=== PATIENT | male | born 1940 | race Caucasian/White ===

== ENCOUNTER 2023-10-16 10:49 | Inpatient (IN) | payer MEDICARE ==
[~2023-10-16] VITALS: Ht 180.3 cm; Wt 97.9 kg
[2023-10-16] VITALS (7 sets, daily range): BP systolic 113–127; BP diastolic 69–75; PULSE 63–70; TEMP 97.5–97.8
--- NOTE | 2023-10-16 12:00 | NUR ---
Pt arrived via EMS. Pt and family oriented to room. Assessment complete. MED Rec complete. Providers notified. CAll light in reach and bed alarm on.
[2023-10-16] MEDS ORDERED: Docusate Sodium 100 MG CAP PO PRN (12:15)
[2023-10-16] MEDS ORDERED: Acetaminophen 325 MG TAB PO PRN (12:15)
[2023-10-16] MEDS ORDERED: Polyethylene Glycol 3350 17 GM PDS PO PRN (12:15)
[2023-10-16] MEDS ORDERED: Ondansetron 4 MG/2 ML VIAL IV PRN (12:15)
[2023-10-16 12:28] LABS: COLLECTION METHOD CATHETER
[2023-10-16] MEDS ORDERED: Morphine 4 MG/ML VIAL IV PRN (12:30)
[2023-10-16] MEDS ORDERED: Naloxone 0.4 MG/ML VIAL IV PRN (12:30)
[2023-10-16] MEDS ORDERED: oxyCODONE 5 MG TAB PO PRN (12:30)
[2023-10-16] MEDS ORDERED: LIPITOR 40MG TA40 MG PO (12:31)
[2023-10-16] MEDS ORDERED: NORVASC 10MG10 MG PO (12:32)
[2023-10-16] MEDS ORDERED: ZEBETA10 MG PO (12:33)
[2023-10-16] MEDS ORDERED: ELIQUIS 5MG PO (12:34)
[2023-10-16] MEDS ORDERED: PRINIVIL10 MG PO (12:34)
[2023-10-16 12:35] LABS: PH 6.5 (5.0-8.5); URINE APPEARANCE CLEAR (CLEAR/HAZY); URINE BLOOD NEGATIVE (NEGATIVE); URINE COLOR YELLOW (YELLOW); URINE GLUCOSE NEGATIVE (NEGATIVE); URINE KETONE NEGATIVE (NEGATIVE); URINE NITRATE NEGATIVE (NEGATIVE); URINE PROTEIN(semi-quant) TRACE (NEGATIVE)
[2023-10-16] MEDS ORDERED: FLOMAX 0.40.4 MG/CAP PO (12:35)
[2023-10-16] MEDS ORDERED: NOVOLIN R100 U/ML SQ (12:35)
[2023-10-16] MEDS ORDERED: PROSCAR 5MG5 MG PO (12:36)
[2023-10-16] MEDS ORDERED: LASIX 40MG TABL40 MG PO (12:36)
[2023-10-16] MEDS ORDERED: PARCOPA 25/101 UDTAB PO (12:38)
[2023-10-16] MEDS ORDERED: REQUIP0.25 MG PO (12:38)
[2023-10-16] MEDS ORDERED: KLOR-CON M2020 MEQ PO (12:39)
[2023-10-16] MEDS ORDERED: VITAMIN B11000 MCG/M IM (12:39)
[2023-10-16] MEDS ORDERED: SYNTHROID0.05 MG/TA PO (12:40)
[2023-10-16] MEDS ORDERED: ZYLOPRIM 100MG100 MG PO (12:40)
[2023-10-16] MEDS ORDERED: PROFERRIN ES12 MG PO (12:41)
[2023-10-16] MEDS ORDERED: MASON NATURAL2000 IU PO (12:42)
[2023-10-16] MEDS ORDERED: NS 1,000 ML IV SCH (12:45)
[2023-10-16 14:18] LABS: INR 1.6 (0.8-3.0); PROTHROMBIN TIME 17.5 SECONDS (9.7-12.8)
[2023-10-16] MEDS ORDERED: Insulin Lispro (HumaLOG) SQ SCH (17:00)
--- NOTE | 2023-10-16 20:00 | NUR ---
Assessment complete. A&Ox3. Denies nausea/shortness of breath. Rating pain 4/10 on pain scale-described as throbbing-tylenol given earlier in shift. Offered oxycodone but patient states he can not take narcotics and prefers to stick with tylenol. VS stable. Repositioned in bed with pillow support. Fresh ice pack applied. PERCY/SCD to right lower ext. [place] cath with clear yellow urine. 20g IV to right forearm with NS@75ml/hr-infusing without difficulty. Noted to have a laceration to back of head-edges well approximated-no bleeding noted. ALso noted to have small abrasions to left shoulder and left knee from fall. Left side of chest bruised. Mepilex to coccyx for redness. PLan of care discussed for this shift to include meds/pain control/NPO@0000. Verbalizes understanding. Call light in reach. Will monitor.
[2023-10-16] MEDS ORDERED: Atorvastatin 40 MG TAB PO SCH (21:00)
--- NOTE | 2023-10-16 22:50 | NUR ---
Rating pain 6/10 to left hip-described as constant throbbing. Tylenol given per dr order. Will monitor.
[2023-10-17] VITALS (17 sets, daily range): BP systolic 106–163; BP diastolic 61–79; PULSE 69–73; TEMP 97.3–98.2
[2023-10-17 06:42] LABS: BASO % 0.5 % (0.0-2.0); EOS # 0.2 K/mm3 (0.0-0.7); EOS % 2.6 % (0.0-4.0); GRAN # 6.9 K/mm3 (1.4-6.5); GRAN % 80.9 % (42.2-75.2); HEMOGLOBIN 12.4 g/dl (13.5-18.0); LYMPH # 0.6 K/mm3 (1.2-3.4); LYMPH % 7.5 % (20.0-51.0); MEAN CELL VOLUME 97 fl (80.0-100.0); MEAN CORPUSCULAR HEMOGLOBIN 33 pg (27-31); MEAN CORPUSCULAR HGB CONC 34 g/dl (33.0-37.0); MEAN PLATELET VOLUME 11.1 fl (7.4-10.4); MONO # 0.7 K/mm3 (0.1-0.6); MONO % 7.8 % (1.7-9.3); PLATELET COUNT 124 K/mm3 (130-400); RED BLOOD COUNT 3.78 M/mm3 (4.20-5.60)
[2023-10-17 06:51] LABS: HEMATOCRIT 36.7 % (42.0-52.0)
[2023-10-17 07:14] LABS: ALBUMIN 3.3 g/dL (3.4-4.8); BILIRUBIN,TOTAL 2.1 mg/dL (0.2-1.2); CALCIUM 8.6 mg/dL (8.4-10.2); CREATININE, serum 1.09 mg/dL (0.72-1.25); TOTAL PROTEIN 5.9 g/dl (6.2-8.1)
[2023-10-17] MEDS ORDERED: Bisoprolol 5 MG TAB PO SCH (09:00)
[2023-10-17] MEDS ORDERED: Finasteride 5 MG TAB PO SCH (09:00)
[2023-10-17] MEDS ORDERED: Lisinopril 10 MG TAB PO SCH (09:00)
[2023-10-17] MEDS ORDERED: Furosemide 40 MG TAB PO SCH (09:00)
[2023-10-17] MEDS ORDERED: Allopurinol 100 MG TAB PO SCH (09:00)
[2023-10-17] MEDS ORDERED: amLODIPine 10 MG TAB PO SCH (09:00)
[2023-10-17] MEDS ORDERED: SINEMET 25/101 UDTAB PO (10:32)
--- NOTE | 2023-10-17 10:43 | NUR ---
Patient resting in bed. Family at bedside. Echo completed this am. Kendra with radiology rounded, patient remains NPO for lexiscan today. Am medication given with sips of water. Discussed medication list with and patient and corrections made to list and reviewed with pharmascist. Patient repostioned in bed. Pain increased with activity, but patient not interested in narcotics. Cms intact. Scds BLE. Sly to RLE. Juan to DD. Will monitor
--- NOTE | 2023-10-17 11:10 | NUR ---
Patient to have lexiscan within 20 minutes. In anticipation of activity and increased pain, patient agreeable to take morphine. Patient concerned pain medication to cause nausea. Prn zofran also given. Patient reports history of nausea with pain medications. James evans
[2023-10-17] MEDS ORDERED: rOPINIRole 0.5 MG TAB PO SCH (12:00)
[2023-10-17] MEDS ORDERED: Regadenoson 0.08 MG/ML 5 ML SYRINGE IV SCH (12:16)
--- NOTE | 2023-10-17 13:09 | NUR ---
Patient has returned from [place] scan. Patient ready to eat. [facility] called, awaiting return call for orders. Patient reports pain more managed.
[2023-10-17] MEDS ORDERED: LASIX 40MG TABL40 MG PO (14:53)
--- NOTE | 2023-10-17 14:58 | NUR ---
die out worker met with pt and his , Anne [phone] to discuss discharge planning. He reports to live in [place] with his . He states his PCP is Dr. Rollins and obtains medications from [facility] with no difficulties. He states his insurance as Medicare A and B and [facility]. He is independent with ADLS and uses a cane, 4WW, and oxygen at night through [facility]. He does have a DPOA-HC at home listing his . Pt has not yet had surgery and has no therapy orders yet. SW provided Medicare.gov list of SNF's in [place], which they state is near [place]. states they would be interested in [facility] [facility] as this is most convienent for them. SW states she will note this and inform main SW for after his surgery is done. Discharge Plan: [facility]
--- NOTE | 2023-10-17 19:20 | NUR ---
PATIENT RESTING IN BED WITH TV ON WITH NO FAMILY PRESENT WITH NO ACUTE DISTRESS NOTED. PATIENT ON 4 LITERS OF OXYGEN VIA NC. NS INFUSING INTO RIGHT FOREARM WITH NO COMPLICATIONS NOTED. HARDIN CATH INTACT, PATENT, AND DRAINING CLEAR YELLOW URINE. BEDSIDE SHIFT REPORT COMPLETED WITH LLOYD AT THIS TIME. PATIENT DENIES ANY NEEDS. BED IN LOW POSITION WITH WHEELS LOCKED WITH RAILS UP X3 AND CALL LIGHT WITHIN REACH. BED ALARM ON.
--- NOTE | 2023-10-17 19:26 | NUR ---
Patient resting in bed. Repositioned in bed. Did well with his early dinner, just disappointed in food. Martinez to DD with adequate urine output. IVf as ordered. Morphine for pain management and tylenol. BLe elevated on pillows. Scds. Report to irmaurse
--- NOTE | 2023-10-17 21:50 | NUR ---
PATIENT RESTING IN BED WITH TV ON WITH NO FAMILY PRESENT WITH NO ACUTE DISTRESS NOTED. PATIENT ON 4 LITERS OF OXYGEN VIA NC. NS INFUSING INTO RIGHT FOREARM WITH NO COMPLICATIONS NOTED. HARDIN CATH INTACT, PATENT, AND DRAINING CLEAR YELLOW URINE. ASSESSMENT AND MEDICATION ADMINISTRATION COMPLETED AT THIS TIME. PATIENT PLACED MEDICATIONS IN LEFT HAND AND DROPPED TWO IN BED. PRIMARY NURSE PUT MEDICATION IN MEDICATION CUP. PRIMARY NURSE HELPED PATIENT PLACE MEDICATION IN MOUTH WITH MEDICINE CUP. PATIENT SPIT MEDICATIONS OUT INTO HIS HAND AND STATED IM NOT GOING TO TAKE THEM. PRIMARY NURSE TRIED TO ORIENT PATIENT TO WHY HE SHOULD TAKE HIS MEDICATIONS AND EXPLAINED WHAT EACH WAS. PATIENT STILL REFUSED TO TAKE THEM. PATIENT DENIES ANY OTHER NEEDS. BED IN LOW POSITION WITH WHEELS LOCKED WITH RAILS UP X3 AND CALL LIGHT WITHIN REACH. BED ALARM ON.
--- NOTE | 2023-10-17 23:36 | NUR ---
PATIENT RESTING IN BED WITH TV ON WITH NO FAMILY PRESENT WITH NO ACUTE DISTRESS NOTED. PATIENT ON 4 LITERS OF OXYGEN VIA NC. NS INFUSING INTO RIGHT FOREARM WITH NO COMPLICATIONS NOTED. PATIENT HAD DISCONNECTED HIS HARDIN DRAIN BAG FROM HIS INSERTED CATHETER. DRAIN BAG REATTACHED AND MARKO CARE PROVIDED. BED CHANGED. PATIENT PULLED UP IN BED AND HELPED TO REPOSITION FOR COMFORT. ALL NEEDS MET. BED IN LOW POSITION WITH WHEELS LOCKED WITH RAILS UP X3 AND CALL LIGHT WITHIN REACH. BED ALARM ON.
[2023-10-18] VITALS (18 sets, daily range): BP systolic 107–174; BP diastolic 54–96; PULSE 59–99; TEMP 97.3–99.4
--- NOTE | 2023-10-18 00:05 | NUR ---
PATIENT TRANSPORTED TO CT VIA BED AT THIS TIME.
--- NOTE | 2023-10-18 00:10 | NUR ---
LOUD CRASH HEARD IN ROOM 345. BED ALARM GOING OFF. PRIMARY NURSE IN TO CHECK ON PATIENT. PATIENT FOUND IN FLOOR ON KNEES WITH HANDS AND HEAD RESTING IN RECLINER. PATIENT ASSISTED TO SIT UP IN FLOOR. PATIENT STATES " YOU ARE GOING TO BURN DOWN THE HOUSE AND KILL ME." PRIMARY NURSE ASSURED PATIENT THAT WAS NOT THE CASE AND THAT PATIENT WAS IN THE HOSPITAL IN [place]. PATIENT ASSISTED BACK TO BED WITH HELP OF DANIA, PRIMARY NURSE, AND STELLA. PATIENT TOLERATED WELL. VITAL SIGNS TAKEN WHILE SITTING ON FLOOR. BLOOD PRESSURE 174/96, 93 % ON ROOM AIR, AND RESPIRATIONS 20. VITAL SIGNS CHECKED AGAIN ONCE BACK IN BED. BLOOD PRESSURE 144/59, HEART RATE 99, RESPIRATIONS 20, AND 97% ON 4LITERS VIA NC.
--- NOTE | 2023-10-18 00:32 | NUR ---
[facility]IENT FALL AT THIS TIME. ORDER RECIEVED FOR CT OF HEAD WITHOUT CONTRAST.
--- NOTE | 2023-10-18 00:56 | NUR ---
PATIENT TRANSPORTED TO CT VIA BED AT THIS TIME.
--- NOTE | 2023-10-18 01:08 | NUR ---
PATIENT BACK FROM CT VIA BED AT THIS TIME.
--- NOTE | 2023-10-18 01:20 | NUR ---
0120- NEW INT OBTAINED INTO RIGHT HAND VIA 1 STICK. DRESSING APPLIED AND INT FLUSHED. NS STARTED BACK AT THIS TIME. 0125- INT TO RIGHT FOREARM REMOVED WITH CATHETER INTACT. PRESSURE DRESSING APPLIED. PATIENT TOELRATED WELL. PATIENT DENIES ANY NEEDS AT THIS TIME. BED IN LOW POSITION WITH WHEELS LOCKED WITH RAILS UP X3 AND CALL LIGHT WITHIN REACH. BED ALAMR ON.
[2023-10-18 06:50] LABS: BASO % 0.2 % (0.0-2.0); EOS % 0.1 % (0.0-4.0); GRAN # 9.6 K/mm3 (1.4-6.5); GRAN % 87.8 % (42.2-75.2); HEMOGLOBIN 11.3 g/dl (13.5-18.0); LYMPH # 0.5 K/mm3 (1.2-3.4); LYMPH % 4.4 % (20.0-51.0); MEAN CELL VOLUME 99 fl (80.0-100.0); MEAN CORPUSCULAR HEMOGLOBIN 32 pg (27-31); MEAN CORPUSCULAR HGB CONC 32 g/dl (33.0-37.0); MEAN PLATELET VOLUME 11.4 fl (7.4-10.4); MONO # 0.8 K/mm3 (0.1-0.6); MONO % 6.9 % (1.7-9.3); PLATELET COUNT 103 K/mm3 (130-400); RED BLOOD COUNT 3.53 M/mm3 (4.20-5.60); REDCELL DISTRIBUTION WIDTH-CV 13.2 % (11.5-14.5)
[2023-10-18 07:12] LABS: ALBUMIN 3.1 g/dL (3.4-4.8); BILIRUBIN,TOTAL 1.8 mg/dL (0.2-1.2); CALCIUM 8.6 mg/dL (8.4-10.2); CREATININE, serum 1.28 mg/dL (0.72-1.25); POTASSIUM 4.3 mEq/L (3.5-4.5); TOTAL PROTEIN 5.9 g/dl (6.2-8.1)
[2023-10-18] MEDS ORDERED: Glucagon 1 MG VIAL IM PRN (07:15)
[2023-10-18] MEDS ORDERED: Dextrose 50% Water 25 GM/50 ML SYRINGE IV PRN (07:15)
[2023-10-18] MEDS ORDERED: Dextrose (Glucose) 15 GM (4 x 3.75 GM) Chewable TABLET PACK PO PRN (07:15)
[2023-10-18 07:27] LABS: HEMATOCRIT 34.9 % (42.0-52.0)
--- NOTE | 2023-10-18 08:30 | NUR ---
Pt. sitting up in bed. Pt. is alert and confused, thinking he is in [place]. Pt. reoriented. IV to rt. hand patent, fluids infusing per orders. Martinez cath to dd, clear yellow urine noted. Pt. has lac to back, left side of head from fall, well approximated, abraisions to lt. shoulder and lt. knee noted. Mepilex to bottom for reddness, skin intact. Pt. denies pain or other needs, call light within reach.
--- NOTE | 2023-10-18 10:44 | NUR ---
welfare worker reviewed notes and noted patient was wanting [facility] for rehab. SW faxed referral to [facility] and will follow up.
[2023-10-18] MEDS ORDERED: dexAMETHasone 10 MG/ML VIAL ONE (11:03)
[2023-10-18] MEDS ORDERED: Lidocaine PF 2% (20 MG/ML) 5 ML VIAL ONE (11:03)
--- NOTE | 2023-10-18 11:25 | NUR ---
Pt. to surgery at this time.
[2023-10-18] MEDS ORDERED: Ondansetron 4 MG/2 ML VIAL IV PRN ×2 (11:30→15:00)
[2023-10-18] MEDS ORDERED: hydrALAZINE 20 MG/ML 1 ML VIAL IV PRN (11:30)
[2023-10-18] MEDS ORDERED: HYDROmorphone 1 MG/1 ML SYRINGE [PACU/SDC ONLY] IV PRN (11:30)
[2023-10-18] MEDS ORDERED: droPERidol 2.5 MG/ML 2 ML VIAL IV PRN (11:30)
[2023-10-18] MEDS ORDERED: Meperidine 50 MG/ML 1 ML VIAL IV PRN (11:30)
[2023-10-18] MEDS ORDERED: fentaNYL 50 MCG/ML 1 ML SYRINGE/VIAL [PACU/SDC ONLY] IV PRN ×2 (11:30)
[2023-10-18] MEDS ORDERED: NS 10 ML IV ONE (12:20)
[2023-10-18] MEDS ORDERED: fentaNYL 50 MCG/ML 2 ML VIAL ONE (12:28)
--- NOTE | 2023-10-18 13:55 | NUR ---
Pt. to the floor from PACU. Pt. is A&Ox3, assessment WNL. Dressings to lt. hip and thigh CDI. Pt. denies pain or other needs.
[2023-10-18] MEDS ORDERED: Mag/Al Hydrox/Simeth Susp 30 ML CUP PO PRN (15:00)
[2023-10-18] MEDS ORDERED: HYDROcodone/Acetaminophen 7.5-325 MG TAB PO PRN (15:00)
[2023-10-18] MEDS ORDERED: 1/2 NS 1,000 ML IV SCH (15:00)
[2023-10-18] MEDS ORDERED: Naloxone 0.4 MG/ML VIAL IV PRN (15:00)
[2023-10-18] MEDS ORDERED: Docusate Sodium 100 MG CAP PO PRN (15:00)
[2023-10-18] MEDS ORDERED: Morphine 4 MG/ML VIAL IV PRN (15:00)
[2023-10-18] MEDS ORDERED: Magnes Hydrox (MOM) 80 MG/ML 30 ML CUP PO PRN (15:00)
--- NOTE | 2023-10-18 17:10 | NUR ---
JUVENAL requested OT to be ordered as well for this patient. JUVENAL will follow up tomorrow and send clinicals to [facility].
[2023-10-18] MEDS ORDERED: Apixaban 5 MG TABLET PO SCH (21:00)
--- NOTE | 2023-10-18 22:07 | NUR ---
Patient assessed at this time, see shift assessment, slightly drowsy, confused, refused to take his meds including his insulin, dressing to left hip clean, dry and intact, IV infusing well to right hand, SCD's and PERCY's on, with laureano to dependent drainage, call light and personal items within reach, fall precautions in place, will continue to monitor.
[2023-10-19] VITALS (12 sets, daily range): BP systolic 97–147; BP diastolic 55–86; PULSE 69–74; TEMP 96.2–98.2
[2023-10-19] MEDS ORDERED: ceFAZolin 2 G in Water For Injection,Sterile 20 ML IV SCH (00:30)
--- NOTE | 2023-10-19 04:21 | NUR ---
Repositioned patient to the left side, denies pain or discomfort, will continue to monitor.
[2023-10-19 06:33] LABS: BASO % 0.1 % (0.0-2.0); GRAN # 9.2 K/mm3 (1.4-6.5); GRAN % 88.4 % (42.2-75.2); HEMOGLOBIN 10.5 g/dl (13.5-18.0); LYMPH # 0.4 K/mm3 (1.2-3.4); LYMPH % 4.1 % (20.0-51.0); MEAN CELL VOLUME 99 fl (80.0-100.0); MEAN CORPUSCULAR HEMOGLOBIN 33 pg (27-31); MEAN CORPUSCULAR HGB CONC 33 g/dl (33.0-37.0); MEAN PLATELET VOLUME 11.3 fl (7.4-10.4); MONO # 0.7 K/mm3 (0.1-0.6); PLATELET COUNT 107 K/mm3 (130-400); RED BLOOD COUNT 3.19 M/mm3 (4.20-5.60); REDCELL DISTRIBUTION WIDTH-CV 13.1 % (11.5-14.5)
[2023-10-19 06:34] LABS: HEMATOCRIT 31.6 % (42.0-52.0)
--- NOTE | 2023-10-19 08:45 | NUR ---
Pt. sitting up in bed. Pt is alert and oriented to self. Able re orient pt. much better today than yesterday. Assessment complete. INT to rt. hand patent. Dressing to LT. hip and thigh cdi. Pt. denies pain at this time. mepilex to bottom for extra padding, abrasion x2 to lt. shoulder, 1 to lt. knee, and small skin tear to anterior ankle. Lac to back left of head well approximated. Pt. denies further needs, call light within reach.
[2023-10-19] MEDS ORDERED: Acetaminophen 500 MG TAB PO SCH (09:00)
[2023-10-19] MEDS ORDERED: Polyethylene Glycol 3350 17 GM PDS PO SCH (09:00)
[2023-10-19] MEDS ORDERED: Docusate Sodium 100 MG CAP PO SCH (09:00)
[2023-10-19] MEDS ORDERED: Insulin Regular Human (NovoLIN R/HumuLIN R) SQ SCH (09:00)
--- NOTE | 2023-10-19 17:41 | NUR ---
Patient resting in bed, alert and oriented x 3, states some discomfort but not pain. Assessment completed. He takes one pill at a time. Some kleenex provided. Telemetry in place. Catheter laureano with yellow clear output. Some meds provided. No further needs at this time. Call light within [facility]. Bed alarm on.
--- NOTE | 2023-10-19 17:50 | NUR ---
caseworker protective services met with patient and family to discuss second option if [facility] is unable to accept. Patient would like to go to [facility] if swing bed cannot accept. JUVENAL faxed updates with the PT and OT evaluations to [facility]. JUVENAL was notified by [facility] that they only received part of the fax. JUVENAL secure emailed the information to [email or web address] JUVENAL faxed referral to [facility]. JUVENAL was notified by [facility] that if [facility] cannot accept they would be able to accept. JUVENAL spoke with patient's and explained they were still waiting to hear back from [facility]. JUVENAL updated Dr. Ely on this update. JUVENAL will follow up tomorrow morning. Discharge plan: [facility] vs [facility]
--- NOTE | 2023-10-19 18:14 | NUR ---
Call received from Tele monitor reporting 15 beats of VTACH. Pt resting in bed, no symptoms. VS 101/61HR [address] % temp 97.7 R18.
--- NOTE | 2023-10-19 18:33 | NUR ---
ATTEMPTED TO CALL Shon DAVILA TO REPORT 15 BEATS OF V-TACH. UNABLE TO REACH X2. @[id number].
--- NOTE | 2023-10-19 18:55 | NUR ---
CONTACTED CANDIDO DAVILA RE:VTACH AND UPDATED STABLE VITALS.
--- NOTE | 2023-10-19 19:11 | NUR ---
Report given to night RN.
--- NOTE | 2023-10-19 20:07 | NUR ---
Called Jonah the PA and made him aware that patient's blood sugar is 165mg/dl and has due scheduled insulin Novolin 25units, received an order to give 10units instead of 25 units and hold the sliding scale insulin of 2 units.
--- NOTE | 2023-10-19 22:30 | NUR ---
Patient assessed at this time, denies pain or discomfort, still with IV infusing well on right hand, still with laureano to dependent drainage, repositioned patient to his right side, dressing to left hip clean, dry, intact, remains on oxygen at 4LPM, instructed how to use the incentive spirometer and reached up to 1500ml, explained the importance of doing the IS, denies further needs, call light and personal items within reach, fall precautions in place, will continue to monitor.
[2023-10-20] VITALS (7 sets, daily range): BP systolic 107–128; BP diastolic 63–82; PULSE 69–100; TEMP 97.7–98.3
[2023-10-20 06:35] LABS: BASO % 0.2 % (0.0-2.0); EOS # 0.1 K/mm3 (0.0-0.7); EOS % 0.7 % (0.0-4.0); GRAN # 8.4 K/mm3 (1.4-6.5); GRAN % 82.8 % (42.2-75.2); HEMOGLOBIN 10.4 g/dl (13.5-18.0); LYMPH # 0.8 K/mm3 (1.2-3.4); LYMPH % 7.8 % (20.0-51.0); MEAN CELL VOLUME 98 fl (80.0-100.0); MEAN CORPUSCULAR HEMOGLOBIN 33 pg (27-31); MEAN CORPUSCULAR HGB CONC 34 g/dl (33.0-37.0); MEAN PLATELET VOLUME 11.6 fl (7.4-10.4); MONO # 0.8 K/mm3 (0.1-0.6); MONO % 7.9 % (1.7-9.3); PLATELET COUNT 127 K/mm3 (130-400); RED BLOOD COUNT 3.14 M/mm3 (4.20-5.60); REDCELL DISTRIBUTION WIDTH-CV 13.2 % (11.5-14.5)
[2023-10-20 06:43] LABS: HEMATOCRIT 30.9 % (42.0-52.0)
[2023-10-20 06:46] LABS: CALCIUM 8.2 mg/dL (8.4-10.2); CREATININE, serum 1.29 mg/dL (0.72-1.25); POTASSIUM 4.3 mEq/L (3.5-4.5)
--- NOTE | 2023-10-20 08:00 | NUR ---
PATIENT IS A&O. PATIENT HAS HX OF UNDERLINED MILD DEMENTIA/CONFUSION BUT IS A&O X4 THIS AM. VSS. REPORTS MINIMAL PAIN AT REST BUT STATES PAIN IS A 6/10 WITH ACTIVITY AND IS REQUESTING SOMETHING FOR PAIN BEFORE AM THERAPY, GIVEN. AM MEDS CRUSHED AND GIVEN IN APPLESAUCE, PATIENT TOLERATED WELL. ST CONSULTED FOR SOME SWALLOWING CONCERNS HOWEVER PATIENT DOES WELL WITH REGULAR, ADA DIET WITH BITE SIZE. AM BS WAS 159. NO C/O N/V. RIGHT WRIST IV TO INT. HARDIN TO DD WITH MOD AMOUNT OF CLEAR YELLOW URINE. LEFT HIP DSG IS CD&I WITH AQUACEL AND GAUZE TO LLE DISTAL SITE. 2 ASSIST WITH WALKER. PT/OT CONSULTED. PLAN IS FOR DISCHARGE TO SNF, POSSIBLY TODAY. HEAD TO TOE ASSESSMENT COMPLETE. DNI STATUS. NO OTHER NEEDS AT THIS TIME. CALL LIGHT IN REACH. BED ALARM ON.
--- NOTE | 2023-10-20 11:15 | NUR ---
DC'D HARDIN & IV SITE FOR DISCHARGE. HARDIN CATH TIP INTACT AND PATIENT TOLERATED WELL. URINAL AT BEDSIDE. IV SITE COVERED WITH GAUZE & COBAN. TELE DC'D. PCT HELPING PATIENT TO GET DRESSED. FAMILY AT BEDSIDE FOR DISCHARGE. SEE ORDERS.
[2023-10-20] MEDS ORDERED: TYLENOL 500MG500 MG PO (11:20)
[2023-10-20] MEDS ORDERED: NORCO 325 MG-7.1 TAB PO (11:21)
--- NOTE | 2023-10-20 11:50 | NUR ---
PATIENT DISCHARGING TO THE [facility] VIA WC TO PERSONAL VEHICLE WITH FAMILY. INFO PACKET GIVEN TO FAMILY. CALLED REPORT TO NURSE AT [facility]. ANSWERED QUESTIONS/CONCERNS. PATIENT IS DRESSED, PACKED AND DISCHARGED.
--- NOTE | 2023-10-20 14:09 | NUR ---
hardboard factory worker contacted [facility] whom expressed they felt patient would need a longer skilled stay and would recommend SNF rather than their swing bed. They expressed their normal stay is around 7-10 days and patient appears to potentially need longer than that. JUVENAL Gonzalez met with patient and reviewed the important message from Medicare. Patient signed. JUVENAL made copy, placed original in chart and provided copy to patient. JUVENAL contacted patient's , Anne, via telephone. Anne stated patient was not wanting to go to a fci. JUVENAL explained unfortunately the swing bed unit does not feel they would be a good fit for him and he would need a longer skilled stay than they would provide. JUVENAL explained [facility] is able to accept, they would just need to determine if that would be today or tomorrow. Anne stated she would contact the primary care physician to discuss this. Anne explained they could transport patient home. JUVENAL met with patient and explained the swing bed unit is unable to accept patient at this time due to his needs. JUVENAL explained [facility] is able to accept him and he would be going there to stay for rehab then return home. Patient understood. JUVENAL was notified by [facility] that they need patient's insurance cards. JUVENAL met with patient and his and secure emailed those cards to [facility]. JUVENAL was notified [facility] could accept today. JUVENAL notified patient and his family of acceptance and that they could transport once patient's discharge orders were in. JUVENAL secure emailed clinical updates and discharge orders to [facility]. Discharge plan: [facility] - SNF
== END 2023-10-20 11:50 | DRG 956 ==
LOC: SURG 10:49
PROVIDERS: Orthopaedic Surgery; Physician Assistant; ADMIT Hospitalist
PROC: 0QS736Z Reposition Left Upper Femur with Intramedullary Internal Fixation Device, Percutaneous Approach (ICD-10-PCS; principal; 2023-10-18 12:00)
DX: S72.002A Fracture of unspecified part of neck of left femur, initial encounter for closed fracture (principal); S06.5X0A Traumatic subdural hemorrhage without loss of consciousness, initial encounter; I13.0 Hypertensive heart and chronic kidney disease with heart failure and stage 1 through stage 4 chronic kidney disease, or unspecified chronic kidney disease; I44.2 Atrioventricular block, complete; I50.22 Chronic systolic (congestive) heart failure; I48.0 Paroxysmal atrial fibrillation; S01.01XA Laceration without foreign body of scalp, initial encounter; E11.22 Type 2 diabetes mellitus with diabetic chronic kidney disease; N18.30 Chronic kidney disease, stage 3 unspecified; D63.1 Anemia in chronic kidney disease; E03.9 Hypothyroidism, unspecified; N40.0 Benign prostatic hyperplasia without lower urinary tract symptoms; G20.A1 Parkinson's disease without dyskinesia, without mention of fluctuations; D69.6 Thrombocytopenia, unspecified; I25.10 Atherosclerotic heart disease of native coronary artery without angina pectoris; M10.9 Gout, unspecified; E78.5 Hyperlipidemia, unspecified; Y92.000 Kitchen of unspecified non-institutional (private) residence as the place of occurrence of the external cause; W18.30XA Fall on same level, unspecified, initial encounter; Z79.01 Long term (current) use of anticoagulants; Z79.4 Long term (current) use of insulin; Z79.890 Hormone replacement therapy; Z96.612 Presence of left artificial shoulder joint; Z95.810 Presence of automatic (implantable) cardiac defibrillator; Z91.81 History of falling; Z87.891 Personal history of nicotine dependence; S72.142A Displaced intertrochanteric fracture of left femur, initial encounter for closed fracture
CPT/HCPCS: A4314; A6197; A9284; A9500-JZ; C1713; C1769; J0665; J0688; J0690; J1100; J1815; J2270; J2405; J2704; J2785; J2795; J3010; J7030